=== PATIENT | male | born 1940 | race Caucasian/White ===

== ENCOUNTER 2021-01-01 05:21 | Observation (INO) ==
--- NOTE | 2020-12-04 09:38 | PAT Medication Instructions ---
Medication Instructions Date of Service December 04, 2020 Home Medications Medication Instructions Recorded Nita Gutierrez #1 ea 11/02/20 docusate sodium 100 mg tablet 300 mg PO TID flaxseed oil 1,000 mg capsule 1,000 mg PO QDL garlic 500 mg tablet 500 mg PO QDL glucosamin 375 mg-chond 300 mg-collagen 50 mg-hyaluronic acid 2 mg cap 1 cap PO QDL hydrocortisone 1 % lotion (Cortizone-10) 1 applic TOPICAL BID PRN multivitamin 1 tab PO QDL STOP taking 2 weeks before surgery (or as soon as possible if surgery is within 2 weeks) flaxseed oil 1,000 mg capsule 1,000 mg PO QDL garlic 500 mg tablet 500 mg PO QDL glucosamin 375 mg-chond 300 mg-collagen 50 mg-hyaluronic acid 2 mg cap 1 cap PO QDL STOP taking 24 hours before surgery hydrocortisone 1 % lotion (Cortizone-10) 1 applic TOPICAL BID PRN DO NOT take the morning of surgery docusate sodium 100 mg tablet 300 mg PO TID multivitamin 1 tab PO QDL Other Notes If you have any questions please call us at [phone] or [phone] or [phone] or [phone]
--- NOTE | 2020-12-07 12:21 | Anesthesiology Consultation ---
Date of Service December 07, 2020 Assessment & Plan (1) Encounter for pre-operative examination: COVID screening: Per assessment on 12/07: Travel screen , no known COVID-19 positive contacts or current COVID-19 related symptoms. Patient vaccinated. Surgeon arranging preop COVID testing. Awaiting results. Chart Review Chart Review: Acceptable Risk for Surgery and Patient seen in Pre Admission Testing Teaching & Discussion Pre-Anesthesia Teaching/Discussion Notes: Instructed NPO after midnight before surgery,except medications with 15 cc of water. Medication instructions provided according to the PAT guidelines. History Surgery Operation Date: 01/01/21 07:50 Proposed Procedures p Left Anterior Total Hip Arthroplasty - Doroteo Glaser, Height/Weight Height: 6 ft 1 in Weight: 92.7 kg Allergies Allergy/AdvReac Type Severity Reaction Status Date / Time No Known Allergies Allergy Verified 11/24/20 11:17 Medications Home Medications Medication Instructions Recorded Confirmed Last Taken Wheeled Walker #1 ea 11/02/20 11/02/20 Unknown docusate sodium 100 mg tablet 300 mg PO TID 11/24/20 11/24/20 Unknown flaxseed oil 1,000 mg capsule 1,000 mg PO QDL 11/24/20 11/24/20 Unknown garlic 500 mg tablet 500 mg PO QDL 11/24/20 11/24/20 Unknown glucosamin 375 mg-chond 300 1 cap PO QDL 11/24/20 11/24/20 Unknown mg-collagen 50 mg-hyaluronic acid 2 mg cap hydrocortisone 1 % lotion 1 applic TOPICAL BID PRN 11/24/20 11/24/20 Unknown (Cortizone-10) multivitamin 1 tab PO QDL 11/24/20 11/24/20 Unknown Past Medical History Medical History BPH (benign prostatic hyperplasia) DJD (degenerative joint disease) Eczema Lumbar spinal stenosis Osteoarthritis Exercise / Class Metabolic Activity III < 4 Walking/Shop/Light housework (one FS (no CP, occ SOB), cane PRN) Past Family History Family History Other No family history of adverse response to anesthesia Past Surgical History Surgical History History of arthroscopy of left knee History of arthroscopy of right knee History of carpal tunnel release of both wrists History of colonoscopy History of left cataract extraction History of prostate biopsy Benign History of right inguinal hernia repair History of shoulder surgery Left History of tonsillectomy History of tooth extraction Hx of vasectomy Past Anesthesia History No Hx of Anesthesia Complications and No Family Hx of Anesthesia Complications History of PONV No Hx of PONV and No Hx of Motion Sickness Social History Smoking Status: Former smoker Do You Dip or Chew Tobacco: No Smoking End Date: Quit 55 yrs ago Hx Alcohol Use: No Hx Substance Use: No substance use type: does not use Review of Systems Patient denies chest pain, shortness of breath, fever, chills, cough, wheezing, palpitations. Physical Exam Vital Signs VITALS BP 127/77 P 71 TEMP 98.3 SP02 96%RA RESP 16 PHYSICAL Decreased cervical extension range of motion. Full TMJ range of motion. TMD 3.5 finger breaths Mallampati Score 3 Dentition: missing molars Lungs: clear throughout to auscultation Cardiac: regular rate and rhythm, no murmurs noted Spine: normal Carotid arteries: negative bruit Extremities: no edema Lab Results Anesthesia Preop Results Results Anesthesia Widget: WBC 5.08 K/uL (4.8-10.8) 12/07/20 Hgb 14.1 g/dL (14.0-18.0) 12/07/20 Hct 41.4 % (42-52) L 12/07/20 Plt 179 K/uL (130-400) 12/07/20 Na 140 mmol/L (136-145) 12/07/20 K 4.4 mmol/L (3.5-5.1) 12/07/20 Cl 108 mmol/L (98-107) H 12/07/20 CO2 27 mmol/L (21-32) 12/07/20 BUN 16 mg/dl (7-18) 12/07/20 Creat 1.03 mg/dl (0.6-1.4) 12/07/20 Glucose Level 94 mg/dl (70-99) 12/07/20 PT 10.5 Seconds (9.0-12.0) 12/07/20 PTT 24.8 Seconds (21.0-31.0) 12/07/20 INR 1.0 (0.9-1.1) 12/07/20 Blood Type A Positive 12/07/20 Antibody Screen NEGATIVE 12/07/20 Testing Electrocardiogram Date: 12/07/20 NSR at 67bpm. unconfirmed report. Chest X-Ray Date: 12/07/20 No large infiltrates or consolidative lesions. Possibly trace pleural effusion however is unclear which posterior costophrenic angle is blunted. Cardiomediastinal silhouette is within upper limits of normal.
[2021-01-01] MEDS ORDERED: dexAMETHasone 4 MG TAB PO SCH (06:00)
[2021-01-01] MEDS ORDERED: ROPIVACAINE 0.5% HCL/PF 150 MG, BUPIVACAINE 0.75% MPF 20 ML, EPINEPHrine 30MG/30ML (OR ... INFIL SCH (06:00)
[2021-01-01] MEDS ORDERED: ceFAZolin 2000MG 2,000 MG/15 ML SYR IV SCH (06:00)
[2021-01-01] MEDS ORDERED: FAMOTIDINE 20 MG TAB PO SCH (06:00)
[2021-01-01] MEDS ORDERED: ACETAMINOPHEN 500 MG TAB PO SCH (06:00)
[2021-01-01] MEDS ORDERED: LR 500ML BOLUS, THEN 15ML/HR IV SCH (06:00)
[2021-01-01] MEDS ORDERED: GABAPENTIN 300 MG CAP PO SCH (06:00)
[2021-01-01] MEDS ORDERED: LR 60ML/HR IV SCH (06:00)
[2021-01-01] MEDS ORDERED: TRANEXAMIC ACID 1,000 MG **IV Intra-op IV SCH (06:00)
[2021-01-01] MEDS ORDERED: TRANEXAMIC ACID 1,000 MG **IV Pre-op IV SCH (06:00)
--- NOTE | 2021-01-01 06:21 | History & Physical Report ---
Date of Service January 01, 2021 Assessment & Plan (1) Osteoarthritis of left hip: We will proceed with a left anterior total hip arthroplasty. Postoperatively he will be started on aspirin for DVT prophylaxis. He can then be discharged home as part of her outpatient protocol. He plans to have [facility] follow him up on Monday. He will then follow-up with orthopedics in 2 weeks. History of Present Illness Chief Complaint: Osteoarthritis of the left hip. Primary Care Provider: Juan Yost is a pleasant 80-year-old male who is been dealing with a long history of left hip and groin pain. X-rays and clinical examination have been diagnostic for advanced osteoarthritis of the left hip. He walks with a limp and an an talgic gait because of it. After failing extensive conservative treatment, he has elected proceed with a left anterior total hip arthroplasty.. Allergies Allergy/AdvReac Type Severity Reaction Status Date / Time No Known Allergies Allergy Verified 01/01/21 06:13 Home Medications Medication Instructions Recorded Confirmed Type Wheeled Walker #1 ea 11/02/20 11/02/20 Rx docusate sodium 100 mg tablet 300 mg PO DAILY 11/24/20 01/01/21 History flaxseed oil 1,000 mg capsule 1,000 mg PO QDL 11/24/20 01/01/21 History garlic 500 mg tablet 500 mg PO QDL 11/24/20 01/01/21 History glucosamin 375 mg-chond 300 1 cap PO QDL 11/24/20 01/01/21 History mg-collagen 50 mg-hyaluronic acid 2 mg cap hydrocortisone 1 % lotion 1 applic TOPICAL BID PRN 11/24/20 01/01/21 History (Cortizone-10) multivitamin 1 tab PO QDL 11/24/20 01/01/21 History celecoxib 200 mg capsule (Celebrex) 200 mg PO BID #28 cap 12/31/20 01/01/21 Rx ondansetron HCl 4 mg tablet 4 mg PO Q8H PRN #10 tab 12/31/20 01/01/21 Rx (Zofran) oxycodone-acetaminophen 5 mg-325 1 tab PO Q6H PRN #30 tab 12/31/20 01/01/21 Rx mg tablet (Percocet) Past Med/Surg History Medical History BPH (benign prostatic hyperplasia) DJD (degenerative joint disease) Eczema Lumbar spinal stenosis Osteoarthritis Surgical History History of arthroscopy of left knee History of arthroscopy of right knee History of carpal tunnel release of both wrists History of colonoscopy History of left cataract extraction History of prostate biopsy Benign History of right inguinal hernia repair History of shoulder surgery Left History of tonsillectomy History of tooth extraction Hx of vasectomy Family History Other No family history of adverse response to anesthesia Social History Smoking Status: Former smoker Smoking End Date: Quit 55 yrs ago; Second Hand Exposure: No; Do You Dip or Chew Tobacco: No; Tobacco Cessation Education Requested by Patient: No Hx Alcohol Use: No Hx Substance Use: No Preferred Language: [place] Communication Ability: Effective 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 Physical Exam On physical examination of the left hip, he walks with a antalgic gait. He has severe tenderness palpation with any range of motion of the hip. All of his pain is located in his groin.. Constitutional WD/WN, vitals as above Eyes PERRL, conjunctivae normal, anicteric sclerae ENMT external ear and nose normal, oropharynx normal Neck trachea midline, no thyromegaly Respiratory normal respiratory effort Cardiovascular RRR, no murmur, no edema Gastrointestinal (Abdomen) normal bowel sounds, soft, nontender, no hepatosplenomegaly Psychiatric A+Ox3, euthymic affect Results & Data Results & Data Laboratory Results . Diagnostic Findings X-rays of the left hip show advanced osteoarthritis with joint space narrowing, osteophyte formation, and [id number] articulation. PG Care Time/CCT Total # of Minutes Spent Total Time Spent with Patient: Total time spent is greater than 50% in coordination of care (as documented) at patient's floor/unit and/or counseling patient: Coding Level of Care Code None Diagnoses Osteoarthritis of left hip M16.12
[2021-01-01] MEDS ORDERED: BUPIVACAINE 0.5 % 5 MG/1 ML PF 10ML VIAL ONE (06:28)
[2021-01-01] MEDS ORDERED: MIDAZOLAM HCL 1 MG/ML 2ML VIAL ONE (06:44)
[2021-01-01] MEDS ORDERED: ONDANSETRON INJ 2 MG/ML 2 ML VIAL ONE ×2 (06:50→08:59)
[2021-01-01] MEDS ORDERED: LIDOCAINE 2%/EPINEPHRINE 1:200,000 20 ML SDV ONE (07:07)
[2021-01-01] MEDS ORDERED: ORTHO JOINT ANESTHETIC ONE (07:24)
[2021-01-01] MEDS ORDERED: ONDANSETRON INJ 2 MG/ML 2 ML VIAL IV PRN (07:24)
[2021-01-01] MEDS ORDERED: fentaNYL citrate 100 MCG/2 ML VIAL IV PRN (07:24)
[2021-01-01] MEDS ORDERED: ATROPINE SULFATE 0.1 MG/ML 10ML SYR IV PRN (07:24)
[2021-01-01] MEDS ORDERED: ePHEDrine sulfate 50 MG/ML AMP IV PRN (07:24)
[2021-01-01] MEDS ORDERED: MEPIVACAINE HCL 1.5% 30 ML VIAL ONE (07:54)
[2021-01-01] MEDS ORDERED: GLYCOPYRROLATE 0.2 MG/ML VIAL ONE (08:12)
[2021-01-01] MEDS ORDERED: LIDOCAINE 2% 2 ML VIAL/AMP(20MG/ML) INFIL ONE (08:12)
[2021-01-01] MEDS ORDERED: PROPOFOL IV EMULSION 10 MG/ML 20 ML VIAL IV ONE ×2 (08:13→10:05)
[2021-01-01] MEDS ORDERED: KETAMINE 50 MG/5 ML SYRINGE ONE (08:13)
[2021-01-01] MEDS ORDERED: PHENYLEPHRINE 100MCG/ML 5ML SYR ONE (08:18)
[2021-01-01] MEDS ORDERED: KETOROLAC 30 MG/ML VIAL ONE (09:00)
[2021-01-01] MEDS ORDERED: PHENYLEPHRINE HCL 10 MG/ML VIAL ONE (09:22)
[2021-01-01] MEDS ORDERED: DEXAMETHASONE SOD INJ 4 MG/ML VIAL ONE ×2 (09:27)
--- NOTE | 2021-01-01 10:22 | Operative Report ---
PG Post Operative Report Pre & Post Diagnosis Operation Date: 01/01/21 07:50 Pre-Op Diagnosis: Degenerative Joint Disease Left Hip Post-Op Diagnosis: Degenerative Joint Disease Left Hip I identified the patient and participated in the time-out.: Yes Procedure Operation Date: 01/01/21 07:50 Actual Procedures p Left Anterior Total Hip Arthroplasty, Uncemented(Left) - Doroteo Glaser DO Surgeon Doroteo Glaser, Sustainment Logistics Analyst Doroteo Hale PAC Estimated Blood Loss 250 Findings Consistent with Post-Op Diagnosis Specimens Left femoral head Complications none Disposition Disposition: Recovery Room Indications Priyank is a pleasant 80-year-old male who is been doing chronic increasing left hip and groin pain. X-rays and clinical examination were diagnostic for advanced arthritis of the left hip. After failing extensive conservative treatment, he elected proceed with a left anterior total hip arthroplasty. Description of Procedure Implants used I used a [employer]immer[employer]omet total hip arthroplasty system with a size 5 high offset Avenir Complete stem, a 56 mm G7 cup with a 25mm screw, an E1 polyethylene liner, a 40 mm ceramic head with a +0 neck and 2 Wendy cables. Priyank arrived at the hospital for the above procedure. He was seen in the preoperative holding area and the operative extremity was identified and signed. He was given a spinal anesthetic, a preoperative antibiotic, and TXA. He was then taken back to the operating room and laid on the table in the supine position. He was given basic sedation. The operative leg was secured to a Puristst leg positioner. The hip was then prepped and draped in sterile fashion. A timeout was done and the patient and the operative extremity was properly identified. An anterior approach was used. Dissection was taken down through the fascia and the tensor muscle belly was retracted laterally and the rectus was retracted medially. The circumflex vessels were identified and ligated. The capsule was then incised and tagged for later repair. The femoral neck was then cut and the femoral head was removed. The acetabulum was exposed. Time was spent doing a complete circumferential labral release. Sequential reaming of the acetabulum up to a size 55 reamer was done. Final reamings were done under fluoroscopy to ensure appropriate version. A Biomet 56 mm G7 cup was then impacted into place. A single 25 mm screw was placed. The E1 polyethylene liner was then snapped into place. Surrounding soft tissues were then injected with 100 cc of an orthopedic pain control cocktail. The proximal femur was then exposed. A starter broach was passed. I was not happy with the position of the starter broach. I immediately took an x-ray. The x-ray showed the tip of the starter broach had violated the medial cortex. The entire proximal femur felt stable. I did not see any signs of propagating fracture. The starter broach was placed in the appropriate alignment and sequential broaching up to a size 5 broach was done. Off that broach a size 40 head with a 0 neck was trialed. The hip was reduced and fluoroscopic images showed anatomic alignment of the implants in acceptable length. The broach was removed. The final size 5 Avenir Complete stem was then impacted into place. A ceramic 40 mm head with a 0 neck was then impacted onto the stem and the hip was reduced. Final fluoroscopic images showed anatomic alignment of the hip. Because of the violation of the medial cortex, 2 cable wires were placed. The capsule was then closed with #1 Vicryl suture. A dilute betadyne lavage was then done for 3 minutes. The joint was then irrigated with normal saline solution. The fascia was closed with #1 PDS suture. Skin was closed with 2-0 Vicryl, myranda, and a Silverlon dressing. He was then transferred to a hospit me bed and taken to the post anesthesia care unit in stable condition. He tolerated the procedure well. Doroteo Hale PA-C, was present for the entire procedure. He was critical for patient positioning, prepping, draping, retraction exposure, wound closure and application of sterile dressing. I attest to the content of the Intraoperative Record and any orders documented therein. Any exceptions are noted below.
[2021-01-01] MEDS ORDERED: oxyCODONE/ACETAMINOPHEN 5mg/325mg TAB PO PRN ×2 (10:40→16:23)
--- NOTE | 2021-01-01 10:44 | Fluoroscopy Report ---
FL hip LT 1V HISTORY: 80 years-old Male LEFT ANTERIOR HIP left hip total joint arthroplasty COMPARISON: Hip radiographs 11/02/2020 TECHNIQUE: 2 spot fluoroscopic images of the left hip were obtained utilizing 31.8 seconds fluoroscop y time FINDINGS: Left hip total joint arthroplasty with associated cerclage wires demonstrates satisfactory alignment without acute fracture. Expected postoperative soft tissue swelling with deep tissue air. IMPRESSION: Left hip total joint arthroplasty with expected postoperative changes. ACT 112: Negative or not required by law. The above report was generated using voice recognition software. It may contain grammatical, syntax o r spelling errors. Electronically signed by: Varun Kruse M.D. 01/01/2021 10:42 AM
--- NOTE | 2021-01-01 11:36 | Anesthesiology Progress Note ---
Date of Service January 01, 2021 Anesthesia Post Procedure Vital Signs Vital Signs: Temp Pulse Pulse Resp BP BP Pulse Ox 01/01/21 11:25 91 H 18 125/69 95 01/01/21 11:10 98.6 F 87 20 115/59 L 96 01/01/21 11:00 98.6 F 87 16 110/69 97 01/01/21 10:50 87 20 109/73 96 01/01/21 10:42 99.7 F H 94 H 12 114/95 99 01/01/21 06:16 98.4 F 82 18 136/76 96 Pain Intensity Right Leg: Pain Intensity: 2 Right Hip: Pain Intensity: 1 Left Hip: Pain Intensity: 1 Transfer of Care Handoff Completed per policy Notes Mental Status: alert / awake / arousable and participated in evaluation Patient Amnestic to Procedure: Yes Nausea / Vomiting: adequately controlled Pain: adequately controlled Airway Patency, RR, SpO2: stable & adequate BP & HR: stable & adequate Hydration State: stable & adequate Anesthetic Complications: no major complications apparent and Pt Satisfied with anesthetic care
--- NOTE | 2021-01-01 13:11 | XRay Report ---
AP PELVIS, CROSSTABLE LATERAL LEFT HIP History: Left total hip arthroplasty. Degenerative arthritis. Postop. FINDINGS: The patient is status post a left total hip arthroplasty. The hardware is intact. No fractu re or dislocation. Skin myranda are in place. There are 2 cerclage wires within the proximal left fem ur. Small bony cortical fragment at the lower cerclage wire which is likely due to postoperative lee ge. This is consistent with a small incomplete fracture fragment is best seen on the crosstable later al view. A 2 cm calcification within the midpelvis favors a bladder stone. IMPRESSION: Left total hip arthroplasty. Small bony cortical fragment at the lower cerclage wire which is likely due to postoperative change. This is consistent with a small incomplete fracture fragment. This findi ng was called/faxed to the referring physician following dictation. ACT 112: Negative or not required by law. Electronically signed by: Neftaly Montoya M.D. 01/01/2021 1:10 PM
[2021-01-01] MEDS ORDERED: HYDROmorphone INJ 0.5 MG/0.5 ML SYR IV PRN (16:23)
[2021-01-01] MEDS ORDERED: METOCLOPRAMIDE HCL INJ 5 MG/ML 2 ML VIAL IV PRN (16:23)
[2021-01-01] MEDS ORDERED: bisacodyL 10 MG SUPP PR PRN (16:23)
[2021-01-01] MEDS ORDERED: NALOXONE HCL 0.4 MG/1 ML VIAL/CARP IV PRN (16:23)
[2021-01-01] MEDS ORDERED: MAGNESIUM HYDROXIDE SUSP 30 ML UDC PO PRN (16:23)
[2021-01-01] MEDS: SODIUM CHLORIDE 0.9% 1000ML 1,000 ML IV SCH (16:44)
[2021-01-01] MEDS: ceFAZolin 2000MG 2,000 MG/15 ML SYR IV SCH (17:21)
[2021-01-01] MEDS: KETOROLAC TROMETHAMINE 15 MG/ML VIAL IV SCH (18:13)
[2021-01-01] MEDS: ASPIRIN 81 MG ECTAB PO SCH (20:25)
[2021-01-01] MEDS: DOCUSATE SODIUM 100 MG CAP PO SCH (20:25)
[2021-01-01] MEDS ORDERED: SENNA 8.6 MG TAB PO SCH (21:00)
[2021-01-02] MEDS: KETOROLAC TROMETHAMINE 15 MG/ML VIAL IV SCH ×2 (00:42→05:38)
[2021-01-02] MEDS: ceFAZolin 2000MG 2,000 MG/15 ML SYR IV SCH (00:42)
[2021-01-02] MEDS: SODIUM CHLORIDE 0.9% 1000ML 1,000 ML IV SCH (02:42)
--- NOTE | 2021-01-02 07:01 | Orthopedic Progress Note ---
Date of Service January 02, 2021 Assessment & Plan (1) Status post left hip replacement: Overall is doing well. He is not having too much pain in the left hip. He can but he up and ambulating today with physical therapy. I do want him to use a walker for 6 weeks. I just want him to be pretty steady with that hip. He still has no hip precautions and can be weightbearing as tolerated. He is on aspirin for DVT prophylaxis. He can be discharged home later today if he feels comfortable. He will follow-up with orthopedics in 2 weeks. Donna Yost was seen and examined at bedside this morning. Overall is doing very well. Is not having much pain in the left hip. He was able to get some sleep last night. He has no complaints.. Review of Systems All systems reviewed & are unremarkable except as noted in HPI & below. Physical Exam On physical examination of the left hip, the dressing is clean and dry. His leg lengths are equal. He has active dorsiflexion plantarflexion of his left ankle.. Results & Data Results & Data Laboratory Results . Diagnostic Findings Postoperative x-rays of the left hip show the prosthesis to be in anatomic alignment. 2 cables were placed. The tip of the starter broach violated the medial cortex. The final broaches were in anatomic alignment but 2 cables were placed to prevent any propagation of a fracture. This was explained to the patient and his daughter.. PG Care Time/CCT Total # of Minutes Spent Total Time Spent with Patient: Total time spent is greater than 50% in coordination of care (as documented) at patient's floor/unit and/or counseling patient: Coding Level of Care Code 58116 Post Operative Follow-Up Diagnoses Status post left hip replacement Z96.642
--- NOTE | 2021-01-02 07:04 | Discharge Summary ---
Date of Service January 02, 2021 Principal Diagnosis Same as "Discharge Diagnosis" noted below under Discharge Instructions. Discharge Exam On physical examination of the left hip, the dressing is clean and dry. His leg lengths are equal. He has active dorsiflexion plantarflexion of his left ankle.. Discharge Data Procedures Performed Operation Date: 01/01/21 07:50 Actual Procedures p Left Anterior Total Hip Arthroplasty, Uncemented(Left) - Doroteo Glaser DO Ordered Studies 01/01/21 08:40 FL hip LT 1V Routine Hospital Course (1) Status post left hip replacement: On January 01, 2021 Priyank arrived at [facility] and underwent a left hip replacement. Due to the Covid pandemic and limited beds at the hospital he was placed in our outpatient joint protocol. He was started on aspirin for DVT prophylaxis. Several hours after the procedure he was up and ambulating with physical therapy. He was able to ambulate around the hallways with a rolling walker. However, due to his age and the number of stairs he has to get up and do his house, the therapist and his family felt it would be safer to keep him overnight if a bed was available. A bed was available and he was transferred to the general orthopedic floors. On postop day #1 his vital signs were stable and his pain was well controlled. He was able to participate well with physical therapy doing ambulation and range of motion exercises. He was then discharged home. Will follow-up with orthopedics in 2 weeks. PG Care Time/CCT Total # of Minutes Spent Total Time Spent with Patient: Total time spent is greater than 50% in coordination of care (as documented) at patient's floor/unit and/or counseling patient: Discharge Plan Discharge Items Patient Disposition: Home - Home Health Services Reason For Visit: Djd Left Hip Discharge Diagnosis: same as above Activity: Per Instructions section Non-emergency contact: Surgeon Call non-emergency contact if: your temperature is above 101.5, your wound has increased redness and your wound has increased drainage Follow-up/Referrals: [facility] [Outside] (as per surgeon's office) Doroteo Glaser DO [Physician] - Juan Meza M.D. [Primary Care Provider] - Diet: Regular Addtl Attending Provider Instructions: Activity and Therapy Recommendations: * If you are using [facility] then therapy will be provided at your home until they feel you have accomplished all of your goals. * If you are using [facility] then Physical Therapy will be provided until they feel you are ready to start Outpatient Physical Therapy. * If you are not using home therapy then Outpatient Physical Therapy should start about 3-5 days from your day of surgery. Therapy will last about 6-10 weeks * You were shown a series of exercises in the hospital. Do these exercises three times each day including the exercises you were shown in physical therapy. * Get up and walk several times each day.~ For the first four weeks, try not to stand or walk for more than one hour at a time. If you do stand or walk for more than one hour, you will not hurt anything, but your leg will likely swell.~~ * As you feel comfortable, you may change from the walker or crutches to a cane and~then to independent walking. Medications: * Narcotic You will likely be sent home from the hospital with a prescription for the narcotic pain medication that worked best throughout your stay. * Aspirin Most patients will be required to take Aspirin 81mg twice a day for 6 weeks after surgery. This is obtained [id number] and a prescription is not necessary. * Other medications may be prescribed for specific circumstances. If you have any questions, please call the office at . * Resume previous home medications unless otherwise instructed TEDs/Elastic Stockings: The white elastic stockings help limit swelling and prevent blood clots from forming in your legs. The more you wear them, the more they work. Wear them for six weeks. Dressing Care: Leave the Silverlon dressing in place for 7 days. After 7 days you may remove the dressing. If the incision is not draining then you may leave the myranda open to air. If there is a little bit of drainage or if the myranda are getting stuck on your clothing then cover the incision with a dry dressing. The myranda will be removed at your 2 week follow-up appointment. Showering: You may shower with the Silverlon dressing in place. Do not let the shower spray hit the dressing directly. Pat the Silverlon dressing dry. If the dressing becomes wet underneath, then simply remove the dressing. Keep the incision dry until you are 7 days out from the day of surgery. After 7 days you may remove the Silverlon dressing and shower with the myranda exposed. Let soapy water run over the myranda and pat them dry. Do not scrub or soak the incision. Things To Watch For: * Drainage from the incision site that occurs more than one week after your surgery. * Increased redness at the incision site. * Fever above 102 degrees Fahrenheit. * Unusual chest pain or shortness of breath. * Call [facility] at with any of the above problems Follow-Up Visit: Follow-up with Dr. Glaser's PA (Doroteo Hale) 2-3 weeks after your day of surgery. He will remove your myranda and answer any questions. If you have any additional questions or concerns, Dr Glaser is usually in the office at the same time and will be available An appointment was probably scheduled when you signed-up for surgery in the office. If you have any questions call Office Instructions: More detailed instructions as well as Frequently Asked Questions were provided in a folder by our office when you signed-up for surgery. Please review these instructions when you get home. If you have any further questions or concerns, please feel free to call the office at [phone] Pending Studies at Discharge: No Stand-Alone Forms: Anesthesia/Sedation, Adult, [facility], Smoking Cessation Medications and DC Order Prescriptions: New aspirin 81 mg Tablet,Delayed Release (Dr/Ec) 81 mg PO BID 42 Days Qty: 84 RF: 0 Continued oxycodone-acetaminophen [Percocet] 5-325 mg tablet 1 tab PO Q6H PRN (Reason: pain) Qty: 30 RF: 0 ondansetron HCl [Zofran] 4 mg tablet 4 mg PO Q8H PRN (Reason: nausea and vomiting) Qty: 10 RF: 0 celecoxib [Celebrex] 200 mg capsule 200 mg PO BID Qty: 28 RF: 0 (DME) Wheeljassi Walker Misc See Rx Instructions .MEDSUPPLY Qty: 1 RF: 0 multivitamin Tablet 1 tab PO QDL RF: 0 flaxseed oil 1,000 mg Capsule 1,000 mg PO QDL RF: 0 garlic 500 mg Tablet 500 mg PO QDL RF: 0 docusate sodium 100 mg Tablet 300 mg PO DAILY RF: 0 yeiwjcgj-ccub-spdxku-hyalur ac 198-382-44-2 mg Capsule 1 cap PO QDL RF: 0 hydrocortisone [Cortizone-10] 1 % Lotion 1 applic TOPICAL BID PRN (Reason: eczema) RF: 0 Discharge Orders: Discharge Order (Routine); Ordered 01/02/21 Ordered By: Doroteo Sanchez/Other Patient Handouts: DVT Post Op Prevention Admission Data Admit Date/Time: 01/01/21 14:32 Attending Provider: Doroteo Glaser Admit Provider: Doroteo Glaser Primary Care Provider: Juan Meza Other Interventions: Discharge Summary Assessment (RN) Last Done: 01/01/21 15:59
[2021-01-02] MEDS: DOCUSATE SODIUM 100 MG CAP PO SCH (07:33)
[2021-01-02] MEDS: ASPIRIN 81 MG ECTAB PO SCH (07:34)
[2021-01-02] MEDS ORDERED: dexAMETHasone 4 MG TAB PO SCH (08:00)
[2021-01-02] MEDS ORDERED: MULTIVITAMIN TAB PO SCH (09:00)
[2021-01-02] MEDS ORDERED: GLUCOSAM CHON COLLAG HYALUR AC PO SCH (11:30)
== END 2021-01-02 11:13 | disposition home health service (06) ==
LOC: 3E 05:21 → ASU 05:21
DX: M16.12 Unilateral primary osteoarthritis, left hip; Z20.822 Contact with and (suspected) exposure to COVID-19; Z79.899 Other long term (current) drug therapy; Z87.891 Personal history of nicotine dependence